=== PATIENT | male | born 1955 ===

== ENCOUNTER 2024-06-05 05:19 | Day surgery (SDC) | payer OTHER ==
[~2024-06-05 05:19] MED LIST: ARICEPT10 MG PO; DAFLONEX-XL 11300 MG PO; LIPITOR40 M1 PO; LOSARTAN-HCTZ1 EAC1 PO; NORVASC5 MG PO; PEPCID AC20 MG PO; RESTORIL30 M1 PO; WELLBUTRIN SR200 MG PO; XANAX1 MG PO
[2024-06-05] MEDS ORDERED: MORPHINE SULFATE 4 MG/ML VIAL IV ONE ×2 (11:10→12:10)
== END 2024-06-05 15:00 | disposition home or self-care (01) ==
LOC: CIR.AMB 05:19
PROVIDERS: ATTEND Colon & Rectal Surgery
DX: K64.2 Third degree hemorrhoids (principal); K64.4 Residual hemorrhoidal skin tags; I10 Essential (primary) hypertension; E11.9 Type 2 diabetes mellitus without complications; F32.9 Major depressive disorder, single episode, unspecified